=== PATIENT | female | born 1960 | race African-American/Black ===

== ENCOUNTER 2016-09-23 11:56 | Outpatient (CLI) | payer OTHER ==
[~2016-09-23] VITALS: Ht 170.2 cm; Wt 88.2 kg
[~2016-09-23 11:56] MED LIST: ADVAIR HFA [SP]12 GM; AUVI-Q; BENADRYL25 MG PO; BLINK TEARS; CO Q-10100 MG PO; COZAAR50 MG PO; CYMBALTA60 MG PO; ESTER-C 500 MG1 TAB; FISH OIL 1,0001 CA1 PO; FLUTICASONE PRO16 GM NS; HEMOCYTE PLUS1 CAP; IBUPROFEN200 MG PO; LIDODERM 5 %1 PATCH TD; LIORESAL 10 MG10 MG PO; NIASPAN500 MG; OYSCO 500+D TAB1 TAB; PREVACID30 MG PO; PRIMROSE OIL PO; PROAIR HFA8.5 GM INH; SINGULAIR10 MG; SOLARAZE100 GM; TUMS500 MG PO; ULTRAM50 MG PO; VITAMIN D2000 UNIT; ZADITOR5 ML EACH EYE; ZANAFLEX4 MG PO; ZANTAC150 MG PO; ZETIA10 MG PO; [UNRECOGNIZED DRUG - OTHER] PO
[2016-09-23 18:35] VITALS: Ht 170.2 cm; Wt 88.2 kg
--- NOTE | 2016-09-23 18:41 | NUR ---
1320-PROLIA INJECTION GIVEN SUB Q IN ABD PT TOLERATED WELL LOT # [id number] EXP: 12/14 DISCHARGE INSTRUCTIONS GIVEN AND WENT OVER WITH PATIENT WITH INFORMATION SHEET HANDED TO THEM. PT STATES UNDERSTANDING AND DENIES ANY NEEDS OR CONCERNS PT DISCHARGED HOME IN STABLE CONDITION
== END 2016-09-23 13:30 | disposition home or self-care (01) ==
LOC: D.OPS 11:56
DX: M81.0 Age-related osteoporosis without current pathological fracture (principal)

== ENCOUNTER → 2016-12-22 15:07 | Outpatient (CLI) | payer OTHER ==
[2016-09-23 18:35] VITALS: BMI 30.4
[2016-12-22 18:41] LABS: % SATURATION 16 % (15-55); IRON 46 ug/dl (35-150); TOTAL IRON BIND CAPACITY 280 ug/dl (260-445); UNSAT IRON BIND CAPACITY 234 ug/dl (150-375)
== END | disposition home or self-care (01) ==
LOC: D.LABREF 15:07
PROVIDERS: Family Medicine
DX: E03.9 Hypothyroidism, unspecified (principal); D64.9 Anemia, unspecified

== ENCOUNTER → 2017-01-08 08:31 | Outpatient (CLI) | payer OTHER ==
[2016-09-23 18:35] VITALS: BMI 30.4
== END | disposition home or self-care (01) ==
LOC: D.CN 08-18 08:30
DX: G56.01 Carpal tunnel syndrome, right upper limb (principal)

== ENCOUNTER 2017-04-20 14:42 | Outpatient (CLI) | payer OTHER ==
[2017-04-20 15:11] VITALS: BP 138/82
== END 2017-04-20 15:39 | disposition home or self-care (01) ==
LOC: D.OPS 14:42
DX: M81.0 Age-related osteoporosis without current pathological fracture (principal)

== ENCOUNTER 2017-10-21 13:41 | Outpatient (CLI) | payer OTHER ==
[~2017-10-21] VITALS: Ht 170.2 cm; Wt 88.2 kg
[2017-10-21 14:23] VITALS: BP 121/69; Ht 170.2 cm; Wt 88.2 kg
== END 2017-10-21 14:36 | disposition home or self-care (01) ==
LOC: D.OPS 13:41
DX: M81.0 Age-related osteoporosis without current pathological fracture (principal)

== ENCOUNTER → 2018-04-06 16:22 | Outpatient (CLI) | payer OTHER ==
[2017-10-21 14:23] VITALS: BMI 30.4
== END | disposition home or self-care (01) ==
LOC: D.RAD 16:22
DX: R14.1 Gas pain (principal)

== ENCOUNTER → 2018-04-26 12:43 | Outpatient (CLI) | payer OTHER ==
[~2018-04-26] VITALS: Ht 170.2 cm; Wt 88.2 kg
[2018-04-26 14:06] VITALS: Ht 170.2 cm; Wt 88.2 kg
== END | disposition home or self-care (01) ==
LOC: D.OPS 12:43
DX: M81.0 Age-related osteoporosis without current pathological fracture (principal); Z01.812 Encounter for preprocedural laboratory examination

== ENCOUNTER 2019-07-18 13:54 | Outpatient (CLI) | payer OTHER ==
[~2019-07-18] VITALS: Ht 170.2 cm; Wt 88.2 kg
[2019-07-18 14:27] VITALS: BP 130/84; Ht 170.2 cm; Wt 88.2 kg
--- NOTE | 2019-07-18 14:41 | NUR ---
PT LEFT UNIT AMBULATING AT 1400
== END 2019-07-18 14:40 | disposition home or self-care (01) ==
LOC: D.OPS 13:54
PROVIDERS: ATTEND Family Medicine
DX: M81.0 Age-related osteoporosis without current pathological fracture (principal)

== ENCOUNTER 2020-12-24 14:00 | Outpatient (CLI) | payer BC ==
[~2020-12-24] VITALS: Ht 165.1 cm; Wt 89.5 kg
[2020-12-24 14:29] VITALS: BP 131/78; Ht 165.1 cm; Wt 89.5 kg
== END 2020-12-24 14:37 | disposition home or self-care (01) ==
LOC: D.OPS 14:00
PROVIDERS: ATTEND Family Medicine
DX: M81.0 Age-related osteoporosis without current pathological fracture (principal)